=== PATIENT | male | born 2000 | race Caucasian/White ===

== ENCOUNTER 2022-03-09 13:02 | Emergency (ER) | payer SELFPAY ==
[~2022-03-09] VITALS: Ht 175.3 cm; Wt 83.9 kg
[2022-03-09 13:02] VITALS: BP 134/77
--- NOTE | 2022-03-09 13:26 | ER.PDOC ---
General Chief Complaint: General Complaint Stated Complaint: SOB,CHEST PAIN Time seen by MD: 13:25 Source: patient Exam Limitations: no limitations History of Present Illness Initial Comments pt c/o non productive cough and sob and sharp pleuritic chest pain w deep breaths. Onset was 2d. +sick contact at home w URI. + body aches and + malaise Timing/Duration: gradual Severity: moderate Associated Symptoms: cough, mild SOB, hurts to breath Constitutional: malaise EENTM: no symptoms reported Respiratory: see HPI Cardiovascular: no symptoms reported All Other Systems: Reviewed and Negative Past Medical History Medical History: no pertinent history Surgical History: no surgical history Social History Alcohol Use: none Drug Use: none Results/Orders Results/Orders Orders - RAYNE VAZQUEZ MD Influenza A&B (03/09/22 13:11) Covid19 Antigen Windy Carli (03/09/22 13:11) Xr Chest 1v (03/09/22 13:35) Vital Signs Date Time Temp Pulse Resp B/P (MAP) Pulse Ox O2 Delivery O2 Flow Rate FiO2 03/09/22 13:02 98.8 91 18 134/77 (96) 98 Room Air* 0 21 03/09/22 13:02 98.8 91 18 03/09/22 13:02 98.8 91 18 98 Laboratory Tests Test 03/09/22 00:00 Influenza Type A Antigen NEGATIVE (NEG) Influenza Type B Antigen NEGATIVE (NEG) SARS-CoV-2 Antigen (Rapid) NEGATIVE (NEGATIVE) Progress Progress ddx: uri, covid, pneumonia, ptx pt has no Wellen PE risk factors ER DEPART Departure Time of Disposition: 14:12 Disposition: 01 HOME / SELF CARE / HOMELESS Impression: Primary Impression: URI (upper respiratory infection) Additional Impression: Chest wall pain Condition: Stable Patient Instructions: Chest Pain (Nonspecific), Upper Respiratory Infection, Adult Referrals: PCP,UNKNOWN (PCP) PRIMARY CARE PROVIDER Additional Instructions: motrin/tylenol f/u w pcp in 3d prn Duration or Time Spent with Pa: 35 Problem Qualifiers RAYNE VAZQUEZ MD Mar 09, 2022 13:25
--- NOTE | 2022-03-09 13:59 | DIREP ---
PROCEDURE:CHEST 1 VIEW COMPARISON:None. INDICATIONS:cough, pleuritic cp FINDINGS: LUNGS/PLEURA:No significant pulmonary parenchymal abnormalities. No effusion or pneumothorax. VASCULATURE:Normal. Unremarkable pulmonary vasculature. CARDIAC:Heart size is normal. MEDIASTINUM:Normal. No visible mass or adenopathy. BONES:Normal. No fracture or visible bony lesion. OTHER:Negative. CONCLUSION: No acute cardiopulmonary abnormality. Dictated by: Tashi Morrison MD on 03/09/2022 at 01:57 PM
== END 2022-03-09 14:23 | disposition home or self-care (01) ==
LOC: ER 13:02
DX: J06.9 Acute upper respiratory infection, unspecified (principal); R07.89 Other chest pain; Z20.822 Contact with and (suspected) exposure to COVID-19
CPT/HCPCS: 71045; 87426; 87804; 99284

== ENCOUNTER 2022-04-29 00:10 | Emergency (ER) | payer BC ==
[~2022-04-29] VITALS: Ht 175.3 cm; Wt 83.9 kg
[2022-04-29 00:37] VITALS: BP 134/85
--- NOTE | 2022-04-29 01:02 | ER.PDOC ---
General Chief Complaint: Eye Problems Stated Complaint: POSS PINK EYE Time seen by MD: 00:49 Source: patient Exam Limitations: no limitations History of Present Illness Initial Comments Left pinkeye since yesterday. Timing/Duration: gradual Associated Symptoms: redness, matting Location: left eye Severity: moderate Apparent Inury: No Past Medical History Medical History: no pertinent history Surgical History: no surgical history Family History Significant Family History: no pertinent family hx Social History Smoking: non-smoker Alcohol Use: none Drug Use: none Constitutional: no symptoms reported Eyes: see HPI Respiratory: no symptoms reported Cardiovascular: no symptoms reported Gastrointestinal: no symptoms reported Musculoskeletal: no symptoms reported All Other Systems: Reviewed and Negative Physical Exam General Appearance: alert, no distress Visual Acuity: no globe trauma Conjunctiva/Sclera: (L) injected, (L) exudate EOM's: intact, no nystagmus Pupils: PERRL, nml accommodation Head/ENT: nml inspection, pharynx nml Skin Exam: Normal Color, Warm/Dry Neck/Back: nml inspection, painless ROM Resp/CVS: no resp distress, lungs clear, heart sounds nml, reg. rate & rhythm Abdomen: non-tender, no organomegaly NEURO/PSYCH: oriented X3, mood/effect nml Results/Orders Results/Orders Vital Signs Date Time Temp Pulse Resp B/P (MAP) Pulse Ox O2 Delivery O2 Flow Rate FiO2 04/29/22 00:37 98.5 79 18 94 04/29/22 00:37 98.5 79 18 134/85 (101) 94 Room Air* 0 21 04/29/22 00:37 98.5 79 18 ER DEPART Departure Time of Disposition: 01:02 Disposition: 01 HOME / SELF CARE / HOMELESS Impression: Primary Impression: Conjunctivitis Condition: Stable Referrals: PCP,UNKNOWN (PCP) PRIMARY CARE PROVIDER Additional Instructions: Polytrim eyedrop Follow-up with eye doctor in 2 to 3 days Return to ED if worse or concerns Duration or Time Spent with Pa: 10 min Problem Qualifiers Primary Impression: Conjunctivitis Conjunctivitis type: unspecified Laterality: left Qualified Codes: H10.9 - Unspecified conjunctivitis SHEKHAR IRBY MD Apr 29, 2022 01:02
== END 2022-04-29 01:09 | disposition home or self-care (01) ==
LOC: ER 00:10
DX: H10.9 Unspecified conjunctivitis (principal)
CPT/HCPCS: 99283